=== PATIENT | female | born 2000 | race Two or more races ===

== ENCOUNTER 2025-08-28 17:43 | Emergency (ER) | payer MEDICAID, SELFPAY ==
[2025-08-28 18:01] VITALS: BP 120/78; PULSE 127; RESP 17; TEMP 39.6; O2SAT 98; BMI 23.8
--- NOTE | 2025-08-28 18:39 | XR_ITS ---
EXAMINATION: PA chest single view TECHNIQUE: Upright PA chest single view Date and time: August 28, 2025, 1854 hours INDICATIONS: Coughing 2 days. FINDINGS: Early pneumonia left base Normal heart size Right lung clear IMPRESSION: Early pneumonia left base
--- NOTE | 2025-08-28 18:39 | PD.EDRME ---
Rapid Medical Screening Exam RME Arrival date/time: 08/28/25 17:43 24F with no significant PMH presents to ED with several days to a week (different answers per mom and patient) of fevers/chills and N/V. Some cough, but patient denies ab pain and gross dysuria. Chief Complaint: Weakness Time Seen by Provider: 08/28/25 19:08 Vital signs: Vital Signs Temperature 103.2 F H 08/28/25 18:01 Pulse Rate 127 H 08/28/25 18:01 Respiratory Rate 17 08/28/25 18:01 Blood Pressure 120/78 08/28/25 18:01 Pulse Oximetry (%) 98 08/28/25 18:01 Oxygen Delivery Method Room Air 08/28/25 18:01 Exam: Clear lungs. Somewhat delayed speech, but per mom says is baseline. Clinical Impression: URI vs CAP vs sepsis vs UTI vs meningitis
[2025-08-28] MEDS: NAPROXEN 250 MG TABLET 500 MG PO (18:53)
[2025-08-28 18:54] VITALS: TEMP 39.6
[2025-08-28] MEDS: ACETAMINOPHEN 500 MG TABLET 1000 MG PO (18:54)
[2025-08-28 19:22] LABS: Lactate (Lactic Acid) 1.4 mMol/L (0.4-2.0)
[2025-08-28 19:25] VITALS: PULSE 98; RESP 17; TEMP 37.1; O2SAT 97
[2025-08-28 19:26] LABS: Basophils # (Auto) 0.0 Thou/mm3 (0.0-0.2); Basophils % (Auto) 1 % (0-2.5); Eosinophils # (Auto) 0.0 Thou/mm3 (0.0-0.5); Eosinophils % (Auto) 0 % (0-10); Hematocrit 39.3 % (36.0-46.0); Hemoglobin 12.9 g/dL (12.0-16.0); Immature Granulocytes Auto 0.01 Thou/mm3 (0.00-0.00); Lymphocytes # (Auto) 1.0 Thou/mm3 (1.0-4.8); Lymphocytes % (Auto) 17 % (10-50); Mean Corpuscular HGB Conc 32.8 g/dl (31.0-37.0); Mean Corpuscular Hemoglobin 28.0 pg (25.0-35.0); Mean Corpuscular Volume 85 fL (80-100); Monocytes # (Auto) 1.2 Thou/mm3 (0.0-0.8); Monocytes % (Auto) 21 % (0-12); Neutrophils # (Auto) 3.5 Thou/mm3 (1.8-7.7); Neutrophils % (Auto) 61 % (37-80); Nucleated Red Blood Cell # 0.00 Thou/mm3 (0.00-0.00); Nucleated Red Blood Cell % 0 /100 WBC (0); Platelet Count 312 Thou/mm3 (140-440); RDW Standard Deviation 43.3 fL (36.4-46.3); Red Blood Count 4.61 Miln/mm3 (4.00-5.20); White Blood Count 5.7 Thou/mm3 (3.6-11.0)
[2025-08-28] MEDS: ONDANSETRON ODT 4 MG TABRAP PO (19:40)
[2025-08-28 19:42] LABS: Collection Type, Urine Clean Catch
[2025-08-28 19:51] LABS: Alanine Aminotransferase 20 U/L (10-49); Albumin, Serum 4.5 gm/dL (3.5-5.0); Albumin/Globulin Ratio 1.2 (1.2-2.2); Alkaline Phosphatase 55 U/L (46-116); Anion Gap 9 (7-16); Aspartate Amino Transferase 28 U/L (0-34); BUN/Creatinine Ratio 6 Ratio (12-20); Bilirubin,Total 0.2 mg/dL (0.3-1.2); Blood Urea Nitrogen < 5 mg/dL (9-23); Calcium 8.9 mg/dL (8.3-10.6); Calcium (Corrected) 8.9 mg/dL (8.5-10.1); Carbon Dioxide 24.4 mMol/L (20.0-31.0); Chloride 104 mMol/L (98-107); Creatinine (Component) 0.9 mg/dL (0.6-1.3); Estimated Creatinine Clearance 87.5 mL/min (>60); Globulin 3.7 gm/dL (2.3-3.5); Glucose 104 mg/dL (74-106); Osmolality,Calculated 271 (275-295); Potassium 3.5 mMol/L (3.4-5.1); Procalcitonin < 0.04 ng/ml (0.0-0.49); Sodium 137 mMol/L (136-145); Total Protein 8.2 gm/dL (5.7-8.2); eGFR > 60 See Note
[2025-08-28 19:52] LABS: HCG Qualitative,Urine Negative
[2025-08-28 19:58] LABS: Amphetamine/Methamp Scrn,U Negative (Negative); Bacteria,Urine Rare; Barbiturate Screen,Urine Negative (Negative); Benzodiazepines Screen,Urine Negative (Negative); Benzoylecgonine Screen, Ur Negative (Negative); Bilirubin,Urine Negative (Negative); Blood,Urine Negative (Negative); Clarity,Urine Turbid (Clear/Hazy); Color,Urine Yellow (Lt Yel-Yel); Culture Indicated,Urine Not Indicated; Fentanyl Screen,Urine Negative (Negative); Glucose, Urine Negative (Negative); Ketones,Urine Negative (Negative); Leukocyte Esterase,Urine Positive (Negative); Nitrite,Urine Negative (Negative); Opiate Screen,Urine Negative (Negative); PH,Urine 6.5 (5.0-7.0); Protein,Urine Trace (Neg - Trace); RBC,Urine 5 /hpf (0-3); Specific Gravity,Urine 1.022 (1.001-1.035); Squamous Epithelial Cell,Urine 16 /hpf (0-5); THC Screen,Urine Negative (Negative); Urobilinogen,Urine Negative mg/dL (0.0-1.0); WBC,Urine 7 /hpf (0-5)
--- NOTE | 2025-08-28 21:42 | EDNOTE_ITS ---
ED General RME/HPI General Chief complaint: Weakness Stated complaint: Tired, weak, nausea Time Seen by Provider: 08/28/25 19:08 Arrival date/time: 08/28/25 17:43 RME / HPI complaint: Patient presenting with acute febrile illness 3 days [employer] associate with RME / HPI narrative: 08/28/25 17:43 24F with no significant PMH presents to ED with several days to a week (different answers per mom and patient) of fevers/chills and N/V. Some cough, but patient denies ab pain and gross dysuria. HPI Patient presenting with febrile illness for approx 3 days duration associate with occasional chills generalized bodyaches malaise. Occasional scantly productive cough with yellow-white phlegm. No shortness of breath vomiting or diarrhea reported. Last menstrual period was 2 weeks [employer]. No obvious infectious exposures. PMH/PSH negative allergies none Exam: Notably febrile and tachycardic clear lungs. Somewhat delayed speech, but per mom says is baseline. Impression: URI vs CAP vs sepsis vs UTI vs meningitis Related Data Home Medications ?Medication ?Instructions ?Recorded ?Confirmed triamcinolone acetonide 0.025 % 0.25 TOP BID ##0 04/07 topical cream Previous Rx's ?Medication ?Instructions ?Recorded naproxen 500 mg tablet (Naprosyn) 500 mg PO BID PRN pa in #30 tabs 09/20/21 ibuprofen 800 mg tablet (IBU) 800 mg PO Q8H #20 tabs 1 acetaminophen 300 mg-codeine 15 mg 1 tab PO Q6H PRN Ge neralized body 08/28/25 tablet aches #20 tabs naproxen 250 mg tablet 250 mg PO BID PRN Fever/body aches 08/28/25 #10 tabs promethazine 12.5 mg tablet 12.5 mg PO TID PRN nausea and 08/28/25 vomiting #10 tabs Allergies Allergy/AdvReac Type Severity Reaction Status Date / Time No Known Allergies Allergy Uncoded 08/28/25 17:50 Past Medical History Social History SOCIAL: Occasional alcohol consumption denies tobacco or illicit drug abuse. ALCOHOL: Current ALCOHOL FREQUENCY: A Few Times a Month HOUSING: House LIVES WITH: Family ED Exam Narrative Physical exam: Notably febrile and tachycardic. Alert nontoxic no acute distress Erythematous vesicles posterior pharynx no tonsillar hypertrophy or exudative lesions. No crowding. Bilateral submandibular tender adenopathy Course Quality Measures none Orders Category Date Time Status Bedside COVID-19 Antigen Test NOW Care 08/28/25 18:38 Completed Bedside Influenza A&B Antigen Test NOW Care 08/28/25 18:39 Completed Bedside STREP Test NOW Care 08/28/25 18:42 Completed XR chest 1V portable Stat Exams 08/28/25 18:39 Completed CBC Stat Lab 08/28/25 19:16 Completed CMP [Comprehensive Metabolic Panel] Stat Lab 08/28/25 19:16 Completed Drug Screen,Urine Stat Lab 08/28/25 19:35 Completed HCG Qualitative,Urine Stat Lab 08/28/25 19:35 Completed Lactate (Lactic Acid) Stat Lab 08/28/25 19:16 Completed Procalcitonin Stat Lab 08/28/25 19:16 Completed Urinalysis, C/S if Indicated Stat Lab 08/28/25 19:35 Completed Acetaminophen Tab [Tylenol ES Tab] Med 08/28/25 18:38 Discontinued 1,000 mg PO X1 ONE Naproxen [Naprosyn] Med 08/28/25 18:38 Discontinued 500 mg PO X1 ONE Ondansetron Odt [Zofran Odt] Med 08/28/25 19:13 Discontinued 4 mg PO X1 ONE Vital Signs Vital signs: Vital Signs Temperature 103.2 F H 08/28/25 18:01 Pulse Rate 127 H 08/28/25 18:01 Respiratory Rate 17 08/28/25 18:01 Blood Pressure 120/78 08/28/25 18:01 Pulse Oximetry (%) 98 08/28/25 18:01 Oxygen Delivery Method Room Air 08/28/25 18:01 Discharge Plan Plan Patient Disposition: HOME (Self Care) Discharge Disposition comment: Stable Prescriptions/Referrals Prescriptions/Med Rec: New acetaminophen-codeine 300-15 mg tablet 1 tab PO Q6H PRN (Reason: Generalized body aches) Qty: 20 0RF naproxen 250 mg tablet 250 mg PO BID PRN (Reason: Fever/body aches) Qty: 10 0RF promethazine 12.5 mg tablet 12.5 mg PO TID PRN (Reason: nausea and vomiting) Qty: 10 0RF No Action triamcinolone acetonide 80 GM cream 0.25 TOP BID Qty: 0 naproxen [Naprosyn] 500 mg tablet 500 mg PO BID PRN (Reason: pain) Qty: 30 0RF ibuprofen [IBU] 800 mg tablet 800 mg PO Q8H Qty: 20 0RF Referrals: Claudio Unger MD [Primary Care Provider, Family Practice] - In 1 week Problem List Clinical Impression: Influenza A Impression comment: Influenza A Patient/Caregiver Discharge Instructions Discharge Activity: activity as tolerated Other Activity Instructions:: Quarantine for 5 days Diet Instructions: Clear liquid diet for 48 hours. Education Materials: ED Influenza (Adult) Additional Instructions: Increase fluids. Maintain adequate rest, quarantine for 5 days. Medication as directed. Return if worsening. Print Language: Citizen Of [place] Stand Alone Forms: [employer] Award Info., Patient Portal Info Letter MDM Narrative MDM hospital course (for use when minimal MDM required): Please see PE findings. Laboratory markers including CBC serum chemistries test and urinalysis were unremarkable. Influenza A testing was positive. Patient not a candidate for Tamiflu at this time. Will treat symptomatically and maintain quarantine for 5 days. Precaution instructions issued. Medication Administration(s) Medication Administration History Discontinued Medications Acetaminophen (Acetaminophen 500 Mg Tablet) 1,000 mg PO X1 ONE Stop: 08/28/25 18:39 Last Admin: 08/28/25 18:54 Dose: 1,000 mg Documented By: Naproxen (Naproxen 250 Mg Tablet) 500 mg PO X1 ONE Stop: 08/28/25 18:39 Last Admin: 08/28/25 18:53 Dose: 500 mg Documented By: Ondansetron HCl (Ondansetron Odt 4 Mg Tabrap) 4 mg PO X1 ONE; Protocol Stop: 08/28/25 19:14 Last Admin: 08/28/25 19:40 Dose: 4 mg Documented By: CB
[2025-08-28 22:00] VITALS: BP 128/76; PULSE 79; RESP 16; TEMP 37.2; O2SAT 98
== END 2025-08-28 22:01 | disposition home or self-care (01) ==
PROVIDERS: Physician Assistant; Emergency Provider Emergency Medicine; PCP Family Medicine
DX: J10.1 Influenza due to other identified influenza virus with other respiratory manifestations (principal)
CPT/HCPCS: 36415; 71045; 80053; 80307; 81001; 81025; 83605; 84145; 85025; 87502; 87635; 87651; 99283; Q0162; A9270